=== PATIENT | female | born 1980 | race Two or more races ===

== ENCOUNTER 2019-06-09 10:42 | Emergency (ER) | payer MEDICARE, MEDICAID ==
[~2019-06-09] VITALS: Ht 160 cm; Wt 77.1 kg
[2019-06-09] MEDS ORDERED: SERT-160 (11:36)
[2019-06-09] MEDS ORDERED: SPIR50TA5 (11:36)
[2019-06-09] MEDS ORDERED: OXYC325T14 (11:36)
[2019-06-09] MEDS ORDERED: TADA20TA48 (11:36)
[2019-06-09] MEDS ORDERED: BUPR-60 (11:36)
[2019-06-09] MEDS ORDERED: TORS100T12 (11:36)
[2019-06-09] MEDS ORDERED: AMBR10TA4 (11:36)
[2019-06-09] MEDS ORDERED: ZOLP10TA6 (11:36)
[2019-06-09] MEDS ORDERED: RANI-229 (11:36)
[2019-06-09] MEDS ORDERED: ALPR-140 (11:36)
[2019-06-09] MEDS ORDERED: VENL150C58 (11:36)
[2019-06-09] MEDS ORDERED: HYDR4TAB2 (11:36)
[2019-06-09] MEDS ORDERED: PROM25TA5 (11:36)
[2019-06-09] MEDS ORDERED: SODIUM CHLORIDE 0.9% 1,000 ML IV ONE (11:47)
[2019-06-09 11:51] LABS: Basophils # (auto) 0 uL; Basophils % (auto) 0.2 % (0.0-2.0); Eosinophils # (auto) 0 uL; Hematocrit 32.4 % (36.0-46.0); Hemoglobin 9.9 g/dL (12.2-16.2); Lymphocytes # (auto) 0.5 uL; Lymphocytes % (auto) 6.7 % (10.0-50.0); Mean Corpuscular Hemoglobin 23.1 pg (28.0-32.0); Mean Corpuscular Hgb Conc. 30.5 g/dL (32.0-36.0); Mean Corpuscular Volume 75.9 fL (80.0-100.0); Monocytes # (auto) 0.7 uL; Monocytes % (auto) 8.8 % (0.0-12.0); Neutrophils # (auto) 6.7 uL; Neutrophils % (auto) 84.3 % (37.0-80.0); Nucleated Red Blood Cells % 0.1 %; Platelet Count (auto) 132 10^3/uL (140-450); Red Blood Cells 4.27 10^6/uL (4.0-5.20); Red Cell Distribution Width 21.1 % (11.8-14.3)
[2019-06-09 12:04] LABS: Alanine Aminotransferase 63 U/L (13-56); Albumin 3.5 g/dL (3.4-5.0); Anion Gap 10 (5-15); Aspartate Aminotransferase 131 U/L (15-37); BUN/Creatinine Ratio 13.9; Blood Alcohol < 3.0 mg/dL (0-5); Blood Urea Nitrogen 34 mg/dL (7-18); Calcium 8.4 mg/dL (8.5-10.1); Carbon Dioxide 22 mmol/L (21-32); Chloride 106 mmol/L (98-107); GFR African American 28 mL/min; GFR Non-African American 23 mL/min; Glucose 71 mg/dL (74-106); Magnesium 2.2 mg/dL (1.6-2.6); Potassium 4.1 mmol/L (3.5-5.1); Sodium 138 mmol/L (136-145)
[2019-06-09 12:09] LABS: Alkaline Phosphatase 122 U/L (45-117); Bilirubin, Total 1.3 mg/dL (0.2-1.0); Total Protein 7.1 g/dL (6.4-8.2)
[2019-06-09 13:14] LABS: INR 1.33 (0.9-1.15); Partial Thromboplastin Time 26.7 sec (23.64-32.05)
[2019-06-09] MEDS ORDERED: HYDROmorphone HCL 2 MG/ML VL IV ONE (15:45)
[2019-06-09 17:30] LABS: Urine Bacteria NONE SEEN /hpf (None Seen); Urine Blood Negative /uL (Negative); Urine Specific Gravity 1.009 (1.001-1.035); Urine WBC 2 /hpf (0 - 5)
[2019-06-09] MEDS ORDERED: LORazepam 2MG/ML-1ML VIAL IV ONE (17:30)
[2019-06-09 17:38] LABS: Alcohol, Urine < 3.0 mg/dL (0-5); Amphetamine Screen, Urine POSITIVE (NEGATIVE); Barbiturate Scree,Urine NEGATIVE (NEGATIVE); Benzodiazephine Screen, Urine NEGATIVE (NEGATIVE); Cannabinoid Screen, Urine NEGATIVE (NEGATIVE); Cocaine Screen, Urine NEGATIVE (NEGATIVE); Opiate Scree,Urine POSITIVE (NEGATIVE); Phencyclidine Screen, Urine NEGATIVE (NEGATIVE)
[2019-06-09 18:00] VITALS: BP 113/74
== END 2019-06-09 18:45 | disposition home or self-care (01) ==
LOC: EDBD 10:42 → ER 10:48
DX: R41.82 Altered mental status, unspecified (principal); E11.649 Type 2 diabetes mellitus with hypoglycemia without coma; G93.41 Metabolic encephalopathy; I27.20 Pulmonary hypertension, unspecified; F32.9 Major depressive disorder, single episode, unspecified; G89.4 Chronic pain syndrome; R94.5 Abnormal results of liver function studies; R79.1 Abnormal coagulation profile; F15.10 Other stimulant abuse, uncomplicated; D50.9 Iron deficiency anemia, unspecified; I50.9 Heart failure, unspecified; K21.9 Gastro-esophageal reflux disease without esophagitis; Z79.899 Other long term (current) drug therapy
CPT/HCPCS: 36415; 71045; 78582; 80053; 80307; 80320; 81001; 82962; 83735; 83880; 84443; 84484; 85025; 85379; 85610; 85730; 93005; 94761; 96361; 96374; 96375; 99284; A9540; A9558; J1170; J2060; J7030

== ENCOUNTER 2019-09-22 06:35 | Inpatient (IN) | payer MEDICARE, MEDICAID ==
[~2019-09-22] VITALS: Ht 157.5 cm; Wt 59.1 kg
[~2019-09-22 06:35] MED LIST: ALPR-140; AMBR10TA4; BUPR-60; HYDR4TAB2; OXYC325T14; PROM25TA5; RANI-229; SERT-160; SPIR50TA5; TADA20TA48; TORS100T12; VENL150C58; ZOLP10TA6
[2019-09-22] MEDS ORDERED: SODIUM CHLORIDE 0.9% 1,000 ML IV ONE (08:07)
[2019-09-22] MEDS ORDERED: HYDROmorphone HCL 2 MG/ML VL IV ONE (08:15)
[2019-09-22 08:33] LABS: Basophils # (auto) 0.1 uL; Basophils % (auto) 1.1 % (0.0-2.0); Eosinophils # (auto) 0 uL; Eosinophils % (auto) 0.4 % (0.0-7.0); Hematocrit 33.8 % (36.0-46.0); Hemoglobin 10.4 g/dL (12.2-16.2); Lymphocytes % (auto) 14.9 % (10.0-50.0); Mean Corpuscular Hemoglobin 21.4 pg (28.0-32.0); Mean Corpuscular Hgb Conc. 30.9 g/dL (32.0-36.0); Mean Corpuscular Volume 69.1 fL (80.0-100.0); Monocytes # (auto) 0.5 uL; Monocytes % (auto) 8.1 % (0.0-12.0); Neutrophils % (auto) 75.5 % (37.0-80.0); Platelet Count (auto) 181 10^3/uL (140-450); Red Blood Cells 4.88 10^6/uL (4.0-5.20); Red Cell Distribution Width 21.2 % (11.8-14.3); White Blood Cell 6.6 10^3/uL (4.4-10.8)
[2019-09-22 08:53] LABS: Alanine Aminotransferase 13 U/L (13-56); Albumin 3.7 g/dL (3.4-5.0); Anion Gap 11 (5-15); Aspartate Aminotransferase 15 U/L (15-37); BUN/Creatinine Ratio 12.2; Blood Urea Nitrogen 18 mg/dL (7-18); Calcium 8.5 mg/dL (8.5-10.1); Carbon Dioxide 23 mmol/L (21-32); Chloride 101 mmol/L (98-107); GFR African American 50 mL/min; GFR Non-African American 42 mL/min; Glucose 85 mg/dL (74-106); Lipase 136 U/L (73-393); Magnesium 2.1 mg/dL (1.6-2.6); Sodium 135 mmol/L (136-145)
[2019-09-22 08:59] LABS: Alkaline Phosphatase 111 U/L (45-117); Bilirubin, Total 0.6 mg/dL (0.2-1.0); Total Protein 7.6 g/dL (6.4-8.2)
[2019-09-22 09:07] LABS: Potassium 2.3 mmol/L (3.5-5.1)
[2019-09-22 09:09] LABS: INR 1.17 (0.9-1.15); Partial Thromboplastin Time 28.5 sec (23.64-32.05)
[2019-09-22] MEDS ORDERED: POTASSIUM EFFERVESENT TAB 25 MEQ PO ONE (09:15)
[2019-09-22] MEDS ORDERED: IOHEXOL 300 MG/ML 100ML BOTTLE IJ ONE (09:27)
[2019-09-22 09:54] LABS: Urine Bacteria NONE SEEN /hpf (None Seen); Urine Blood Negative /uL (Negative); Urine Specific Gravity 1.008 (1.001-1.035); Urine WBC 1 /hpf (0 - 5)
[2019-09-22] MEDS: PROMETHAZINE HCL 25 MG/ML 1ML IV PRN ×3 (10:02→20:43)
[2019-09-22] MEDS ORDERED: POTASSIUM CHLORIDE 20 MEQ, LIDOCAINE 1% (LOCAL ANESTH.) 2 ML in SODIUM CHL 0.9% 100 ML IV ONE ×2 (13:45→20:00)
[2019-09-22] MEDS ORDERED: NITROGLYCERIN 0.4 MG SL TAB SL PRN (13:45)
[2019-09-22] MEDS ORDERED: MORPHINE SULF INJ 2 MG/ML SYRINGE 1ML IV PRN (13:45)
[2019-09-22] MEDS: HYDROmorphone HCL 2 MG/ML VL IV PRN ×2 (15:09→18:31)
[2019-09-22] MEDS: PANTOPRAZOLE 40 MG TAB PO SCH ×2 (16:29→21:22)
--- NOTE | 2019-09-22 18:19 | NUR ---
CAME ON WC FROM ER, ALERT AND ORIENTED X4, NOT IN DISTRESS, LS DIMINISHED IN BILATERAL LUNG LOBES, RR=20 UDP=260 IN RA, S TACH ON TELE MONITOR R=104, DENIED CHEST PAIN AND SOB, RT. CHEST FLOLAN SITE COVERED WITH DRY AND INTACT DRESSING, ABDOMEN SOFT WITH ACTIVE BS IN 4 QUADRANTS, LAST BM=THIS MORNING REPORTED, C/O ABDOMINAL PAIN L=8/10 AT THIS MOMENT, SKIN INTACT WARM TO TOUCH, RADIAL AND PEDAL PULSES PALPABLE, CAP REFILL <3 SECONDS, VS T=98.4 RR=20 SAT=93% P=104 RG=792/81, SITTING ON BED, BED ON LOW POSITION, RAILS UP X2, CALL LIGHT ON REACH, PENDING EGD IN AM ORDERED, WILL CONTINUE MONITORING.
[2019-09-22] MEDS: ONDANSETRON HCL 4 MG/2 ML VIAL IV PRN (18:31)
[2019-09-22 18:37] VITALS: BP 112/81
[2019-09-22 19:21] LABS: BUN/Creatinine Ratio 12.3; Calcium 8.7 mg/dL (8.5-10.1)
[2019-09-22 19:30] LABS: Potassium 2.5 mmol/L (3.5-5.1)
--- NOTE | 2019-09-22 19:40 | NUR ---
PENDING MRSA NARES SAMPLE AND LT. ANKLE WOUND PICTURE, PHARMACY WAS CALLED FOR PENDING POTASSIUM IV BP FOLLOW UP, PHARMACY WILL SEND THE MEDICATION REPORTED, POTASSIUM L= 2.5 REPORTED BY LAB, HOSPITALIST MONO WAS CALLED AND NOTIFIED, PENDING NEW ORDERS REPORTED, REPORT WAS GIVEN TO THE CHEMICAL ETCHING PROCESSOR RN.
[2019-09-22] MEDS ORDERED: POTASSIUM CHLORIDE 60 MEQ, LIDOCAINE 1% (LOCAL ANESTH.) 6 ML in SODIUM CHL 0.9% 500 ML IV ONE (19:45)
--- NOTE | 2019-09-22 20:53 | NUR ---
MRSA Nares sent to lab via bullet system.
--- NOTE | 2019-09-22 21:30 | NUR ---
Wound admission picture taken of left ankle.
[2019-09-22 22:29] VITALS: BP 123/73
[2019-09-23] MEDS: HYDROmorphone HCL 2 MG/ML VL IV PRN ×5 (03:02→21:13)
[2019-09-23] MEDS: PROMETHAZINE HCL 25 MG/ML 1ML IV PRN ×4 (03:03→18:13)
--- NOTE | 2019-09-23 04:54 | NUR ---
The aide was taking the patient's VS and found the patient's oxygen level to be 74% on RA. This RN came to assess the patient and placed supplemental oxygen on at 3 L/min via nasal cannula and the oxygen level came up to 88%. The oxygen was then increased to 5 L/min and the oxygen saturation came up to 93%. The patient felt warm to the touch, capillary refill was less 3 seconds, coloring had pink and red undertones to the skin. This RN asked the patient if she uses oxygen at home and she stated she uses oxygen at home at 2.5 L/min via nasal cannula. She stated she did not share that information in the ED or as part of her medical history during the admission because she felt fine and came here because of a headache. She states at home her oxygen level is normally around 85% and her oxygen levels drop when she sleeps. Bradley yates hospitalist.
[2019-09-23 05:35] VITALS: BP 123/60
[2019-09-23 06:34] LABS: Eosinophils # (auto) 0 uL; Hematocrit 33.5 % (36.0-46.0); Lymphocytes # (auto) 1.1 uL; Mean Corpuscular Volume 70.4 fL (80.0-100.0); Monocytes # (auto) 0.5 uL; Monocytes % (auto) 8.6 % (0.0-12.0)
[2019-09-23 06:37] LABS: Basophils # (auto) 0.1 uL; Basophils % (auto) 1.4 % (0.0-2.0); Eosinophils % (auto) 0.6 % (0.0-7.0); Hemoglobin 10.1 g/dL (12.2-16.2); Lymphocytes % (auto) 19.1 % (10.0-50.0); Mean Corpuscular Hemoglobin 21.3 pg (28.0-32.0); Mean Corpuscular Hgb Conc. 30.2 g/dL (32.0-36.0); Neutrophils # (auto) 3.9 uL; Neutrophils % (auto) 70.3 % (37.0-80.0); Nucleated Red Blood Cells % 0.2 %; Platelet Count (auto) 182 10^3/uL (140-450); Red Blood Cells 4.76 10^6/uL (4.0-5.20); White Blood Cell 5.6 10^3/uL (4.4-10.8)
[2019-09-23 06:45] LABS: Albumin 3.6 g/dL (3.4-5.0); Calcium 8.5 mg/dL (8.5-10.1); Potassium 3.3 mmol/L (3.5-5.1)
[2019-09-23 06:49] LABS: BUN/Creatinine Ratio 11.4; Bilirubin, Total 0.6 mg/dL (0.2-1.0); Total Protein 7.3 g/dL (6.4-8.2)
[2019-09-23 06:56] LABS: Red Cell Distribution Width 21.3 % (11.8-14.3)
--- NOTE | 2019-09-23 07:35 | NUR ---
Opening Shift Note Assumed care of patient, awake and alert. No S/S of distress/SOB or pain. Instructed on POC and to call for assist PRN, will continue to monitor for changes Q1hr and PRN.
[2019-09-23 08:00] VITALS: BP 137/91
[2019-09-23] MEDS: PANTOPRAZOLE 40 MG TAB PO SCH ×2 (09:14→21:14)
[2019-09-23] MEDS: SUMAtriptan SUCCINATE 25 MG TAB PO PRN (09:43)
--- NOTE | 2019-09-23 12:48 | NUR ---
ROUNDING MD Mireya MARIN AT BEDSIDE. ALL QUESTIONS AND CONCERNS ADDRESSED AT THIS TIME.
[2019-09-23 13:00] VITALS: BP 132/87
[2019-09-23] MEDS: SUCRALFATE 1 GM/10 ML ORAL SUSP PO SCH ×3 (13:46→21:14)
[2019-09-23 17:00] VITALS: BP 137/95
[2019-09-23] MEDS: ALPRAZolam 0.5 MG TAB PO PRN (17:18)
--- NOTE | 2019-09-23 20:00 | NUR ---
Opening Shift Note Assumed care of patient, awake and alert. No S/S of distress/SOB or pain. Instructed on POC and to call for assist PRN, will continue to monitor for changes Q1hr and PRN.Advised no food or drink after midnight.
[2019-09-23] MEDS: POTASSIUM CHL 20 Meq TABLET PO SCH (21:14)
[2019-09-23 22:00] VITALS: BP 136/80
[2019-09-24] MEDS: PROMETHAZINE HCL 25 MG/ML 1ML IV PRN ×2 (00:34→21:56)
[2019-09-24] MEDS: HYDROmorphone HCL 2 MG/ML VL IV PRN ×7 (00:35→23:16)
[2019-09-24] MEDS: ALPRAZolam 0.5 MG TAB PO PRN ×2 (02:49→16:05)
[2019-09-24] MEDS: ONDANSETRON HCL 4 MG/2 ML VIAL IV PRN ×3 (02:56→19:55)
[2019-09-24 04:43] VITALS: BP 133/84
[2019-09-24] MEDS: SUCRALFATE 1 GM/10 ML ORAL SUSP PO SCH ×4 (06:12→21:55)
[2019-09-24 07:06] LABS: Potassium 4.1 mmol/L (3.5-5.1)
--- NOTE | 2019-09-24 07:08 | NUR ---
Report given to Rodolfo WHITT maintained for EGD today.
[2019-09-24 07:12] LABS: Albumin 3.4 g/dL (3.4-5.0); BUN/Creatinine Ratio 10.9; Bilirubin, Total 0.5 mg/dL (0.2-1.0); Calcium 8.1 mg/dL (8.5-10.1); Total Protein 6.4 g/dL (6.4-8.2)
[2019-09-24 07:13] LABS: Basophils # (auto) 0.1 uL; Eosinophils # (auto) 0 uL; Monocytes # (auto) 0.5 uL; Nucleated Red Blood Cells % 0.1 %
[2019-09-24 07:15] LABS: Basophils % (auto) 0.9 % (0.0-2.0); Eosinophils % (auto) 0.8 % (0.0-7.0); Hematocrit 33.1 % (36.0-46.0); Hemoglobin 9.8 g/dL (12.2-16.2); Lymphocytes # (auto) 0.9 uL; Lymphocytes % (auto) 15.8 % (10.0-50.0); Mean Corpuscular Hgb Conc. 29.7 g/dL (32.0-36.0); Mean Corpuscular Volume 70.8 fL (80.0-100.0); Monocytes % (auto) 9.1 % (0.0-12.0); Neutrophils # (auto) 4.2 uL; Neutrophils % (auto) 73.4 % (37.0-80.0); Platelet Count (auto) 191 10^3/uL (140-450); Red Blood Cells 4.67 10^6/uL (4.0-5.20); White Blood Cell 5.8 10^3/uL (4.4-10.8)
[2019-09-24 07:16] LABS: Red Cell Distribution Width 21.3 % (11.8-14.3)
--- NOTE | 2019-09-24 08:44 | NUR ---
TAKEN TO PRE OP VIA BED. NO SIGNS OF DISTRESS. IV TENDER. ATTEMPTED IV TWICE WITH NO SUCCESS. ANT Braun STARTED 20 G RIGHT HAND ON FIRST ATTEMPT.
[2019-09-24 09:00] VITALS: BP 141/92
[2019-09-24] MEDS ORDERED: MIDAZOLAM HCL 1MG/1ML-2 ML VIAL ONE (09:13)
[2019-09-24] MEDS ORDERED: fentaNYL CITRATE 100 MCG/2 ML VL ONE (09:13)
[2019-09-24] MEDS ORDERED: SODIUM CHLORIDE LOCK 10 ML ONE (09:13)
[2019-09-24] MEDS ORDERED: ONDANSETRON HCL 4 MG/2 ML VIAL ONE (09:13)
[2019-09-24] MEDS ORDERED: PROPOFOL 10 MG/ML 20 ML IV ONE (09:13)
[2019-09-24] MEDS ORDERED: fentaNYL CITRATE 100 MCG/2 ML VL IV PRN (09:30)
[2019-09-24] MEDS ORDERED: HYDROmorphone HCL 2 MG/ML VL IV PRN (09:30)
[2019-09-24] MEDS ORDERED: METOCLOPRAMIDE HCL 5MG/ml INJ 2ml VIAL IV PRN (09:30)
[2019-09-24] MEDS ORDERED: MORPHINE SULFATE 4 MG/ML SYR/VIAL IV PRN (09:30)
[2019-09-24] MEDS: PANTOPRAZOLE 40 MG TAB PO SCH ×2 (09:35→21:55)
[2019-09-24] MEDS: POTASSIUM CHL 20 Meq TABLET PO SCH ×2 (09:35→21:55)
[2019-09-24] MEDS: SUMAtriptan SUCCINATE 25 MG TAB PO PRN ×2 (11:51→19:56)
[2019-09-24 12:30] VITALS: BP 133/87
[2019-09-24 16:56] VITALS: BP 122/81
--- NOTE | 2019-09-24 19:30 | NUR ---
Opening Shift Note Assumed care of patient, awake and alertx4. Family at bedside. IV to right hand flushed with 10 mls NS. Site benign. No S/S of SOB. Complains of headache and abdominal pain along with nausea. Will medicate per orders. Skin clear. Instructed on POC and to call for assist PRN, will continue to monitor for changes Q1hr and PRN.
[2019-09-24 21:47] VITALS: BP 125/85
[2019-09-25] MEDS: ALPRAZolam 0.5 MG TAB PO PRN
[2019-09-25] MEDS: HYDROmorphone HCL 2 MG/ML VL IV PRN ×7 (02:00→23:15)
[2019-09-25] MEDS: PROMETHAZINE HCL 25 MG/ML 1ML IV PRN ×2 (02:00→07:20)
[2019-09-25] MEDS: ONDANSETRON HCL 4 MG/2 ML VIAL IV PRN (05:00)
[2019-09-25 05:04] VITALS: BP 125/85
[2019-09-25 05:58] LABS: Basophils # (auto) 0 uL; Lymphocytes # (auto) 0.9 uL; Monocytes # (auto) 0.5 uL; Nucleated Red Blood Cells % 0.1 %
[2019-09-25 06:00] LABS: Basophils % (auto) 0.3 % (0.0-2.0); Eosinophils # (auto) 0.1 uL; Hematocrit 36.7 % (36.0-46.0); Hemoglobin 10.9 g/dL (12.2-16.2); Lymphocytes % (auto) 13.6 % (10.0-50.0); Mean Corpuscular Hemoglobin 21.4 pg (28.0-32.0); Mean Corpuscular Hgb Conc. 29.8 g/dL (32.0-36.0); Mean Corpuscular Volume 71.8 fL (80.0-100.0); Monocytes % (auto) 7.6 % (0.0-12.0); Neutrophils # (auto) 4.8 uL; Neutrophils % (auto) 77.5 % (37.0-80.0); Platelet Count (auto) 204 10^3/uL (140-450); Red Blood Cells 5.11 10^6/uL (4.0-5.20); White Blood Cell 6.2 10^3/uL (4.4-10.8)
--- NOTE | 2019-09-25 06:00 | NUR ---
Patient continued to have nausea and vomiting throughout night. Ice chips given, alternated her zofran and phenergan for the nausea. Complained of severe headache most of night along with her abdominal pain. Very restless and upset crying a few times. Pain meds given per orders. Gave imitrex x1 and patient did not want it again for the headache. Called hospitalist this am and received order for tums due to complaints of "heartburn" stating " I need something for the acid". Complains of leg cramps/spasms as well. Encouraged fluids. Will endorse.
[2019-09-25 06:11] LABS: Red Cell Distribution Width 21.2 % (11.8-14.3)
[2019-09-25 06:18] LABS: Albumin 3.7 g/dL (3.4-5.0); Calcium 8.8 mg/dL (8.5-10.1); Potassium 4.4 mmol/L (3.5-5.1)
[2019-09-25 06:22] LABS: BUN/Creatinine Ratio 10.3; Bilirubin, Total 0.6 mg/dL (0.2-1.0); Total Protein 7.3 g/dL (6.4-8.2)
[2019-09-25] MEDS: SUCRALFATE 1 GM/10 ML ORAL SUSP PO SCH ×4 (06:44→22:20)
[2019-09-25 09:00] VITALS: BP 123/84
[2019-09-25] MEDS: CALCIUM CARB 500 MG CHEW TAB PO SCH ×3 (09:16→18:19)
--- NOTE | 2019-09-25 11:49 | NUR ---
NUTRITION ASSESSMENT NOTES Please refer to link notes of nutrition screen form filed under the intervention section of the plan of care for further details. Est. Needs: 1450 kcal to 1750 kcal (25-30 kcal/kgBW), 47 gms to 59 gms pro (0.8-1.0 gms/kgBW). Will continue to monitor pertinent labs and reassess nutrient need prn Thank you. Addendum: 09/25/19 at [address] Amended: Links added.
[2019-09-25] MEDS: POTASSIUM CHL 20 Meq TABLET PO SCH ×2 (11:54→22:20)
[2019-09-25] MEDS: PANTOPRAZOLE 40 MG TAB PO SCH ×2 (11:54→22:20)
[2019-09-25] MEDS: OXYCODONE W/ ACETAMINOPHEN 5/325MG TABLET PO PRN ×2 (11:55→18:26)
[2019-09-25 13:00] VITALS: BP 125/75
[2019-09-25 17:00] VITALS: BP 114/72
[2019-09-25] MEDS: PROCHLORPERAZINE EDISYLATE 5 MG/ML 2ML VIAL IV PRN (20:00)
[2019-09-25 21:56] VITALS: BP 137/76
[2019-09-25] MEDS: LORazepam 2MG/ML-1ML VIAL IV PRN (22:22)
--- NOTE | 2019-09-25 23:00 | NUR ---
Started new IV to Left AC 22 G. Patient tolerated well. Saline locked at this time. Discontinued IV to right hand due to redness and patient complaining of it bothering her.Medicine given for nausea and pain meds per patient request. Patient is doing much better than last night. Not vomiting regularly like last night. Continuing to monitor
[2019-09-26] MEDS: HYDROmorphone HCL 2 MG/ML VL IV PRN ×5 (02:20→20:41)
[2019-09-26 05:19] VITALS: BP 124/82
[2019-09-26] MEDS: SUCRALFATE 1 GM/10 ML ORAL SUSP PO SCH ×4 (07:00→23:03)
--- NOTE | 2019-09-26 07:30 | NUR ---
Opening Shift Note Assumed care of patient, awake and alert. No S/S of distress/SOB. Pt rated pain at 10/10, pt educated that pain medications are not due at this time. Pt verbalized understanding. Bed in lowest and locked position with side rails up x2 and call light within reach. Instructed on POC and to call for assist PRN, will continue to monitor for changes Q1hr and PRN.
[2019-09-26 07:41] LABS: Basophils # (auto) 0.1 uL; Eosinophils # (auto) 0 uL; Eosinophils % (auto) 0.8 % (0.0-7.0); Hemoglobin 10.2 g/dL (12.2-16.2); Lymphocytes # (auto) 1.3 uL; Neutrophils # (auto) 4.3 uL; Nucleated Red Blood Cells % 0.1 %
[2019-09-26 07:43] LABS: Basophils % (auto) 1.1 % (0.0-2.0); Hematocrit 34.1 % (36.0-46.0); Lymphocytes % (auto) 21.6 % (10.0-50.0); Mean Corpuscular Hemoglobin 21.6 pg (28.0-32.0); Mean Corpuscular Hgb Conc. 29.9 g/dL (32.0-36.0); Mean Corpuscular Volume 72.1 fL (80.0-100.0); Monocytes # (auto) 0.4 uL; Monocytes % (auto) 7.2 % (0.0-12.0); Neutrophils % (auto) 69.3 % (37.0-80.0); Platelet Count (auto) 189 10^3/uL (140-450); Red Blood Cells 4.72 10^6/uL (4.0-5.20); White Blood Cell 6.2 10^3/uL (4.4-10.8)
[2019-09-26 07:44] LABS: Red Cell Distribution Width 21.6 % (11.8-14.3)
[2019-09-26] MEDS: CALCIUM CARB 500 MG CHEW TAB PO SCH ×3 (08:00→17:09)
[2019-09-26 08:20] VITALS: BP 120/89
[2019-09-26 08:29] LABS: Albumin 3.3 g/dL (3.4-5.0); Calcium 8.3 mg/dL (8.5-10.1)
[2019-09-26 08:34] LABS: Bilirubin, Total 0.7 mg/dL (0.2-1.0); Total Protein 6.6 g/dL (6.4-8.2)
[2019-09-26 09:00] VITALS: BP 120/89
--- NOTE | 2019-09-26 09:09 | NUR ---
CALL FROM LAB RECEIVED CALL FROM [facility] WITH LAB. ACCORDING TO THE FERN PICKER, THE PTS POTASSIUM LEVEL IS CRITICAL AT 5.9. MD TO BE NOTIFIED.
[2019-09-26 09:10] LABS: Potassium 5.9 mmol/L (3.5-5.1)
--- NOTE | 2019-09-26 09:12 | NUR ---
NOTIFIED DR. MARIN OF CRITICAL POTASSIUM DR. MARIN NOTIFIED OF THE CRITICAL POTASSIUM OF 5.9. NEW ORDERS RECEIVED, READ BACK AND VERIFIED TO REPEAT BMP.
[2019-09-26] MEDS: POTASSIUM CHL 20 Meq TABLET PO SCH ×2 (10:00→23:03)
[2019-09-26] MEDS: PROCHLORPERAZINE EDISYLATE 5 MG/ML 2ML VIAL IV PRN ×2 (10:53→20:42)
[2019-09-26] MEDS: PANTOPRAZOLE 40 MG TAB PO SCH ×2 (10:56→23:04)
[2019-09-26 10:59] LABS: BUN/Creatinine Ratio 9.3; Calcium 8.5 mg/dL (8.5-10.1); Potassium 5.1 mmol/L (3.5-5.1)
--- NOTE | 2019-09-26 11:00 | NUR ---
DR. MARIN NOTIFIED OF NEW POTASSIUM LAB DRAW. AWARE THAT PTS POTASSIUM IS 5.1 WITH THE RE-DRAW. AWARE. NO NEW ORDERS RECEIVED AT THIS TIME.
[2019-09-26 13:00] VITALS: BP 144/76
[2019-09-26] MEDS: OXYCODONE W/ ACETAMINOPHEN 5/325MG TABLET PO PRN ×2 (13:33→23:00)
[2019-09-26] MEDS: LORazepam 2MG/ML-1ML VIAL IV PRN ×2 (14:57→23:00)
[2019-09-26 17:00] VITALS: BP 140/77
[2019-09-26 21:48] VITALS: BP 133/99
--- NOTE | 2019-09-26 22:21 | NUR ---
New IV started to Right FA 20 Gauge. Discontinued IV to left AC due to leaking. Tolerated well. Will continue to monitor.
[2019-09-27] MEDS: HYDROmorphone HCL 2 MG/ML VL IV PRN ×2 (03:17→11:09)
[2019-09-27] MEDS: PROCHLORPERAZINE EDISYLATE 5 MG/ML 2ML VIAL IV PRN (03:17)
[2019-09-27 04:53] VITALS: BP 120/70
[2019-09-27 06:50] LABS: Albumin 3.4 g/dL (3.4-5.0); Calcium 8.8 mg/dL (8.5-10.1); Potassium 4.7 mmol/L (3.5-5.1)
[2019-09-27 06:54] LABS: BUN/Creatinine Ratio 9.3; Bilirubin, Total 0.8 mg/dL (0.2-1.0); Total Protein 6.6 g/dL (6.4-8.2)
[2019-09-27] MEDS: SUCRALFATE 1 GM/10 ML ORAL SUSP PO SCH ×2 (06:59→11:09)
[2019-09-27 07:02] LABS: % Iron Saturation 13.9 % (15-50)
--- NOTE | 2019-09-27 07:30 | NUR ---
Opening Shift Note Assumed care of patient, awake and alert. No S/S of distress/SOB or pain. Bed in lowest and locked position with side rails up x2 and call light within reach. Instructed on POC and to call for assist PRN, will continue to monitor for changes Q1hr and PRN.
[2019-09-27 08:00] VITALS: BP 121/78
[2019-09-27] MEDS: CALCIUM CARB 500 MG CHEW TAB PO SCH ×2 (08:00→12:00)
[2019-09-27 08:59] VITALS: BP 121/78
[2019-09-27] MEDS: POTASSIUM CHL 20 Meq TABLET PO SCH (10:00)
[2019-09-27 10:11] LABS: Ferritin 14.7 ng/mL (10-322)
--- NOTE | 2019-09-27 10:35 | NUR ---
SPOKE TO DR. MARIN ACCORDING TO DR. MARIN, HE DISCUSSED THE POC WITH DR. BEDOLLA AND GRAEME SIGNED OFF THE CASE. PER DR. MARIN, CANCEL IMAGING AND PATIENT CAN BE DISCHARGED.
--- NOTE | 2019-09-27 10:55 | NUR ---
SPOKE TO DR. MARIN. NOTIFIED DR. MARIN THAT THE PATIENT IS IN PAIN AND REQUESTING DILAUDID. MD AWARE. ACCORDING TO MD, THE PATIENT IS TO BE GIVEN DILAUDID REGARDLESS OF DISCHARGE STATUS.
[2019-09-27] MEDS: PANTOPRAZOLE 40 MG TAB PO SCH (11:09)
[2019-09-27 11:13] LABS: Basophils # (auto) 0.1 uL; Eosinophils # (auto) 0 uL; Eosinophils % (auto) 0.3 % (0.0-7.0); Hematocrit 40.4 % (36.0-46.0); Hemoglobin 12.2 g/dL (12.2-16.2); Lymphocytes # (auto) 1.2 uL; Mean Corpuscular Hemoglobin 21.4 pg (28.0-32.0); Monocytes # (auto) 0.5 uL; Nucleated Red Blood Cells % 0.1 %
[2019-09-27 11:15] LABS: Lymphocytes % (auto) 16.7 % (10.0-50.0); Mean Corpuscular Hgb Conc. 30.2 g/dL (32.0-36.0); Mean Corpuscular Volume 70.7 fL (80.0-100.0); Monocytes % (auto) 7.3 % (0.0-12.0); Neutrophils # (auto) 5.4 uL; Neutrophils % (auto) 74.7 % (37.0-80.0); Platelet Count (auto) 229 10^3/uL (140-450); Red Blood Cells 5.71 10^6/uL (4.0-5.20); White Blood Cell 7.2 10^3/uL (4.4-10.8)
--- NOTE | 2019-09-27 11:17 | NUR ---
SPOKE TO DR. MARIN. DR. MARIN NOTIFIED THAT THE PATIENT HAS A CENTRAL LINE FOR HER PULMONARY HTN AND THAT THE PATIENT HAS HAD THIS LINE FOR 10 YEARS. MD AWARE AND ACCORDING TO DR. MARIN THE PATIENT IS TO DISCHARGE WITH THE CENTRAL LINE.
[2019-09-27 11:21] LABS: Red Cell Distribution Width 21.9 % (11.8-14.3)
[2019-09-27 12:48] VITALS: BP 121/78
[2019-09-27 13:00] VITALS: BP 121/75
--- NOTE | 2019-09-27 13:37 | NUR ---
SPOKE TO DR. OLSON ACCORDING TO DR. OLSON THE PATIENT IS CLEAR FOR DISCHARGE AFTER THE PATIENT RECEIVED A ONE TIME DOSE OF DILAUDID. MD NOTIFIED THAT THE PATIENT HAS RECEIVED DILAUDID RECENTLY AND PER MD ORDERS THE PATIENT IS TO HAVE A SECOND DOSE.
[2019-09-27] MEDS ORDERED: HYDROmorphone HCL 2 MG/ML VL IV ONE (13:45)
--- NOTE | 2019-09-27 15:24 | NUR ---
Discharge instructions given as ordered. Encourage to follow up with PMD as instructed. All questions and concerns addressed. Patient verbalized understanding. Medication reconciliation form completed and copy given to patient. No Home medications held in Pharmacy. Pt refused needed vaccines. IV removed with catheter intact, pressure dressing applied. Telemetry unit returned to ICU. Wound pictures taken.
--- NOTE | 2019-09-27 15:25 | NUR ---
Patient refused wheel chair and assistance. Patient walked off unit with all personal belongings accompanied by family member. No distress noted at time of departure.
== END 2019-09-27 15:25 | disposition home or self-care (01) | DRG 391 ==
LOC: ER 06:35 → TELE 06:36 → TELE-CENTR 17:24
PROVIDERS: ADMIT Nurse Practitioner Acute Care; ATTEND Family Medicine
PROC: 0DB68ZX Excision of Stomach, Via Natural or Artificial Opening Endoscopic, Diagnostic (ICD-10-PCS; principal; 2019-09-24 09:25)
DX: K29.00 Acute gastritis without bleeding (principal); I50.23 Acute on chronic systolic (congestive) heart failure; Q44.6 Cystic disease of liver; I31.3 Pericardial effusion (noninflammatory); R18.8 Other ascites; I13.0 Hypertensive heart and chronic kidney disease with heart failure and stage 1 through stage 4 chronic kidney disease, or unspecified chronic kidney disease; E03.9 Hypothyroidism, unspecified; E87.6 Hypokalemia; I27.20 Pulmonary hypertension, unspecified; D50.9 Iron deficiency anemia, unspecified; N18.3 Chronic kidney disease, stage 3 (moderate); G43.109 Migraine with aura, not intractable, without status migrainosus; I27.21 Secondary pulmonary arterial hypertension; F32.9 Major depressive disorder, single episode, unspecified; F41.9 Anxiety disorder, unspecified; K21.9 Gastro-esophageal reflux disease without esophagitis; Z90.49 Acquired absence of other specified parts of digestive tract; Z79.899 Other long term (current) drug therapy; Z88.1 Allergy status to other antibiotic agents; Z88.8 Allergy status to other drugs, medicaments and biological substances
CPT/HCPCS: 36415; 43239; 71046; 74177; 80048; 80053; 81001; 81241; 82607; 82728; 83540; 83550; 83615; 83690; 83735; 83880; 84443; 84484; 85025; 85045; 85302; 85306; 85379; 85610; 85613; 85670; 85705; 85730; 85732; 86147; 86850; 86880; 86900; 86901; 87081; 93005; 93306; 96361; 96374; G0378; J2001; J2250; J2405; J2704; J7042

== ENCOUNTER 2020-03-25 10:22 | Emergency (ER) | payer MEDICARE, MEDICAID ==
[~2020-03-25] VITALS: Ht 162.6 cm; Wt 65.8 kg
[~2020-03-25 10:22] MED LIST changes: -ALPR-140; +ALPR0.5T8; -RANI-229; +RANI300T
[2020-03-25 10:52] VITALS: BP 114/71
[2020-03-25] MEDS ORDERED: MORPHINE SULFATE 10 MG/ML INJ 1ML SDV IM ONE (11:15)
[2020-03-25] MEDS ORDERED: PROMETHAZINE HCL 25 MG/ML 1ML IM ONE (11:15)
== END 2020-03-25 11:40 | disposition home or self-care (01) ==
LOC: ER 10:22
DX: G89.29 Other chronic pain (principal); M54.5 Low back pain; G43.909 Migraine, unspecified, not intractable, without status migrainosus; K21.9 Gastro-esophageal reflux disease without esophagitis; Z88.1 Allergy status to other antibiotic agents; I50.9 Heart failure, unspecified; Z90.49 Acquired absence of other specified parts of digestive tract
CPT/HCPCS: 96372; 99284; J2270; J2550

== ENCOUNTER 2020-05-20 17:00 | Inpatient (IN) | payer MEDICARE, MEDICAID ==
[~2020-05-20] VITALS: Ht 172.7 cm; Wt 77.1 kg
[2020-05-20 17:15] VITALS: BP 96/58
[2020-05-20] MEDS ORDERED: MIDAZOLAM HCL 5 MG/ML-1ML VIAL IV ONE ×2 (17:15→17:45)
--- NOTE | 2020-05-20 17:15 | NUR ---
RT NOTE PT WAS INTUBATED FOR RESP FAILURE. PT INTUBATED BY DR PEARCE ON FIRST ATTEMPT WITH INTUBATION ASSIST FROM OPERATOR GROUND BASED AIR DEFENCE TRACY Cam AND OPERATOR GROUND BASED AIR DEFENCE MOIRA Cordoba PT INTUBATED WITH A SIZE 8.0 ETT SECURED 23CM AT THE LIP VIA [place]. PT PLACED ON VENT WITH THE ABOVE SETTINGS. PT WAS FIGHTING THE VENT AND GAGGING ON THE TUBE. DR PEARCE ORDERED LIDOCAINE AND INJECTED IT DOWN THE ETT WHILE OPERATOR GROUND BASED AIR DEFENCE MOIRA Cordoba BAGGED THE MEDICATION IN. PT WAS ABLE TO CALM AND NOT GAG ON THE TUBE AFTER MEDICATION WAS GIVEN. SPUTUM WAS COLLECTED AND SENT TO LAB. ABG WAS DRAWN AND RESULTS SHOWN TO ON COMING DR DAVIS.
[2020-05-20] MEDS ORDERED: MIDAZOLAM HCL 5 MG/ML-1ML VIAL ONE (17:16)
[2020-05-20] MEDS ORDERED: MIDAZOLAM DRIP 50 mg/50mL 50 ML IV ONE (17:16)
[2020-05-20] MEDS: MIDAZOLAM DRIP 50 mg/50mL 50 ML IV SCH (17:17)
[2020-05-20] MEDS ORDERED: MORPHINE SULFATE 4 MG/ML SYR/VIAL ONE (17:22)
[2020-05-20] MEDS ORDERED: LIDOCAINE HCL 2 % INJ 2ML MPF NEB ONE (17:30)
[2020-05-20] MEDS ORDERED: LIDOCAINE 2%HCL (LOCAL ANESTH.) INJ 20ML MDV ONE (17:35)
[2020-05-20] MEDS ORDERED: MORPHINE SULFATE 4 MG/ML SYR/VIAL IV ONE ×2 (17:45)
[2020-05-20] MEDS ORDERED: LIDOCAINE 2% (LOCAL ANESTH.) PF 5ml SDV IJ ONE (17:45)
[2020-05-20] MEDS ORDERED: ACETAMINOPHEN 650 MG RECT SUPP PR ONE ×2 (17:49→18:00)
[2020-05-20 18:05] LABS: Urine Bacteria FEW /hpf (None Seen); Urine Blood Negative /uL (Negative); Urine Specific Gravity 1.011 (1.001-1.035); Urine WBC 3 /hpf (0 - 5)
[2020-05-20 18:07] LABS: Basophils # (auto) 0.1 10 ^3/uL (0-0.2); Eosinophils # (auto) 0 10 ^3/uL (0-0.8); Hemoglobin 8.8 g/dL (12.2-16.2); Lymphocytes # (auto) 1.1 10 ^3/uL (0.4-5.4); Mean Corpuscular Hemoglobin 19.8 pg (28.0-32.0); Monocytes % (auto) 7.6 % (0.0-12.0)
[2020-05-20 18:09] LABS: Basophils % (auto) 0.3 % (0.0-2.0); Hematocrit 31.8 % (36.0-46.0); Lymphocytes % (auto) 5.7 % (10.0-50.0); Mean Corpuscular Hgb Conc. 27.8 g/dL (32.0-36.0); Mean Corpuscular Volume 71.2 fL (80.0-100.0); Monocytes # (auto) 1.5 10 ^3/uL (0-1.3); Neutrophils # (auto) 17.5 10 ^3/uL (1.6-8.6); Neutrophils % (auto) 86.4 % (37.0-80.0); Nucleated Red Blood Cells % 0.8 %; Platelet Count (auto) 195 10^3/uL (140-450); Red Blood Cells 4.47 10^6/uL (4.0-5.20); White Blood Cell 20.2 10^3/uL (4.4-10.8)
[2020-05-20 18:15] LABS: INR 1.58 (0.9-1.15); Partial Thromboplastin Time 29.8 sec (23.0-31.2)
[2020-05-20 18:21] LABS: Albumin 2.7 g/dL (3.4-5.0); Anion Gap 11 (5-15); Blood Urea Nitrogen 51 mg/dL (7-18); Calcium 7.7 mg/dL (8.5-10.1); Carbon Dioxide 23 mmol/L (21-32); Chloride 100 mmol/L (98-107); Magnesium 2.4 mg/dL (1.6-2.6); Potassium 4.9 mmol/L (3.5-5.1); Sodium 134 mmol/L (136-145)
[2020-05-20 18:24] LABS: Lactic Acid w/Reflex 5.4 mmol/L (0.4-2.0)
[2020-05-20 18:27] LABS: Alanine Aminotransferase 198 U/L (13-56); Alkaline Phosphatase 119 U/L (45-117); Aspartate Aminotransferase 493 U/L (15-37); BUN/Creatinine Ratio 16.8; Bilirubin, Total 0.9 mg/dL (0.2-1.0); GFR African American 22 mL/min; GFR Non-African American 18 mL/min
[2020-05-20] MEDS ORDERED: cefTRIAXone 1GM/50ML D5W 50 ML IV ONE (18:30)
[2020-05-20 18:38] LABS: Glucose 41 mg/dL (74-106)
[2020-05-20] MEDS ORDERED: DEXTROSE 50% SYRINGE 50 ML IV ONE (18:39)
[2020-05-20] MEDS: NOREPINEPHRINE 8 MG/250ML KIT 250 ML IV SCH (18:45)
[2020-05-20] MEDS ORDERED: DEXTROSE (50%) 50ML SYRG IV PRN ×2 (19:00→21:00)
[2020-05-20] MEDS ORDERED: DEXTROSE (50%) 50ML SYRG IV ONE (19:00)
[2020-05-20] MEDS ORDERED: DEXTROSE 10% 1,000 ML IV ONE (19:00)
[2020-05-20] MEDS ORDERED: ACCU-CHEK COMFORT CURVE STRIP VI SCH (19:00)
[2020-05-20] MEDS ORDERED: SODIUM CHLORIDE 0.9% 1,000 ML IV SCH (20:46)
[2020-05-20 20:48] VITALS: BP 90/55
[2020-05-20] MEDS ORDERED: ACETAMINOPHEN 325 MG TAB PO PRN (21:00)
[2020-05-20] MEDS ORDERED: DOCUSATE SOD 100 MG CAP PO PRN (21:00)
[2020-05-20] MEDS ORDERED: ACETAMINOPHEN 500 MG TAB PO PRN (21:00)
[2020-05-20] MEDS ORDERED: HYDROcodone-ACET 5/325MG TAB PO PRN (21:00)
[2020-05-20] MEDS: ACCU-CHEK COMFORT CURVE STRIP VI SCH ×3 (21:00→23:00)
[2020-05-20] MEDS ORDERED: ONDANSETRON HCL 4 MG/2 ML VIAL IV PRN (21:00)
[2020-05-20] MEDS ORDERED: MORPHINE SULF INJ 2 MG/ML SYRINGE 1ML IV PRN (21:00)
[2020-05-20] MEDS ORDERED: ALBUTEROL SULF HFA 90MCG INH 200DOSE IN SCH (22:00)
[2020-05-20 22:02] VITALS: BP 100/66
--- NOTE | 2020-05-20 22:02 | NUR ---
RT NOTE ROUTINE VENT CHECK DONE. PT IS INTUBATED AND ON VENT V16 ON STATED SETTINGS IN THE ER. VENT IS PLUGGED TO RED OUTLET. ALARMS ARE ON AND AUDIBLE TO NURSING. AMBU BAG AT BEDSIDE AND CONNECTED TO O2 SOURCE. 8.0 ETT IS SECURED WITH ANCHORFAST AT 23 CM TO THE ORAL CENTER. FAMILY MEMBER AT BEDSIDE WITH RN. LLANOS ORDERED POX 89% Addendum: 05/20/20 at 2216 by Jen Gloria RT Amended: Links added.
[2020-05-20] MEDS: DOXYCYCLINE 100 MG TAB/CAP PO SCH (23:24)
[2020-05-20] MEDS: DexAMETHasone SOD PHOS 10MG/1ML VIAL INJ IV SCH (23:24)
[2020-05-21] VITALS (11 sets, daily range): BP systolic 88–111; BP diastolic 55–72
[2020-05-21] MEDS: ACCU-CHEK COMFORT CURVE STRIP VI SCH ×23 (00:23→23:11)
[2020-05-21] MEDS ORDERED: PROPOFOL 100 ML IV ONE (01:32)
[2020-05-21] MEDS: PROPOFOL 100 ML IV SCH (01:59)
[2020-05-21 06:05] LABS: Hematocrit 30.9 % (36.0-46.0); White Blood Cell 20.9 10^3/uL (4.4-10.8)
[2020-05-21 06:08] LABS: Mean Corpuscular Hemoglobin 20.1 pg (28.0-32.0); Mean Corpuscular Volume 69.3 fL (80.0-100.0); Platelet Count (auto) 180 10^3/uL (140-450); Red Blood Cells 4.46 10^6/uL (4.0-5.20)
[2020-05-21 06:12] LABS: Red Cell Distribution Width 22.9 % (11.8-14.3)
[2020-05-21 06:14] LABS: Basophils % (manual) 0 (0.0-2.0); Blast Cells 0; Eosinophils % (manual) 0 (0-7); Promyelocytes % 0; Reactive Lymphocytes 0
[2020-05-21 06:32] LABS: Albumin 2.3 g/dL (3.4-5.0); BUN/Creatinine Ratio 19.3; Calcium 8.1 mg/dL (8.5-10.1); Magnesium 2.1 mg/dL (1.6-2.6); Potassium 3.7 mmol/L (3.5-5.1)
[2020-05-21 06:40] LABS: Bilirubin, Total 0.8 mg/dL (0.2-1.0); Total Protein 6.4 g/dL (6.4-8.2)
[2020-05-21 09:14] LABS: Band Neutrophils % (manual) 4; Lymphocytes % (manual) 4 (10.0-50.0); Metamyelocytes % 0; Monocytes % (manual) 2 (0-12); Myelocytes % 1
[2020-05-21] MEDS: ENOXAPARIN SOD 100 MG/1 ML SYRINGE SC SCH (09:31)
[2020-05-21] MEDS: DOXYCYCLINE 100 MG TAB/CAP PO SCH ×2 (09:31→22:00)
[2020-05-21] MEDS: DexAMETHasone SOD PHOS 10MG/1ML VIAL INJ IV SCH (09:35)
[2020-05-21] MEDS ORDERED: ASCORBIC ACID 1,000 MG TAB PO SCH (10:00)
[2020-05-21] MEDS ORDERED: ZINC SULFATE 220mg CAP or TAB PO SCH (10:00)
[2020-05-21] MEDS ORDERED: ENOXAPARIN SOD 30 MG/0.3 ML SYRINGE SC SCH (10:00)
[2020-05-21] MEDS ORDERED: PANTOPRAZOLE 40 MG/10 ML VIAL INJ IV ONE (11:00)
[2020-05-21] MEDS: PIPERACILLIN-TAZOB 3.375GM 100 ML IV SCH ×2 (12:15→18:36)
--- NOTE | 2020-05-21 12:30 | NUR ---
WOUND CARE NOTE: IN TO SEE PATIENT AT THIS TIME FOR SKIN INTEGRITY MONITORING. PATIENT NOTED TO BE INTUBATED, SEDATED IN THE ER. SHE IS RESTING ON GURNEY. ORDERED VCP AIR BED AT THIS TIME. PATIENT TO BE PLACED, PENDING DELIVERY BY ADY CHRISTIE. PATIENT ADMITTED TO [facility] WITH DIAGNOSIS OF ACUTE RESPIRATORY FAILURE. CURRENT MADDY SCORE ASSESSED AT 10. SHE REMAINS INTUBATED, SEDATED. BEDSIDE NURSE STATES THAT PATIENT IS WOUND FREE UPON ASSESSMENT. SKIN/WOUND CARE PLAN IMPLEMENTED. RECOMMEND: FREQUENT TURN SCHEDULE Q 2 HOURS, PRN CONDITION PERMITS, WITH PRESSURE REDISTRIBUTION USING PILLOWS/WEDGES, SPECIALTY AIR BED PREVENTATIVE, BID/PRN APPLICATION WITH MOISTURE BARRIER CREAM, OPTIFOAM GENTLE SACRAL DRESSING PREVENTATIVE, DIETARY CONSULT FOR INTUBATION STATUS, SKIN/WOUND CARE PLAN, CONTINUED MONITORING BY WOUND CARE TEAM.
[2020-05-21] MEDS: D5W/SOD CHLO 0.9% 1,000 ML IV SCH (15:56)
[2020-05-21] MEDS: MIDAZOLAM DRIP 50 mg/50mL 50 ML IV SCH ×2 (17:13→21:20)
[2020-05-21] MEDS: NOREPINEPHRINE 8 MG/250ML KIT 250 ML IV SCH (18:34)
[2020-05-21] MEDS ORDERED: VASOPRESSIN 20 UNIT/ML ONE (20:42)
[2020-05-22] VITALS (13 sets, daily range): BP systolic 95–125; BP diastolic 55–78
[2020-05-22] MEDS: ACCU-CHEK COMFORT CURVE STRIP VI SCH ×14 (01:00→22:03)
[2020-05-22] MEDS: MIDAZOLAM DRIP 50 mg/50mL 50 ML IV SCH ×2 (01:15→04:55)
[2020-05-22] MEDS: PROPOFOL 100 ML IV SCH (01:15)
[2020-05-22] MEDS: NOREPINEPHRINE 8 MG/250ML KIT 250 ML IV SCH (02:00)
[2020-05-22] MEDS: D5W/SOD CHLO 0.9% 1,000 ML IV SCH ×2 (05:16→19:56)
[2020-05-22] MEDS: PIPERACILLIN-TAZOB 3.375GM 100 ML IV SCH ×4 (06:24→18:21)
[2020-05-22 09:13] LABS: INR 1.41 (0.9-1.15)
[2020-05-22 09:29] LABS: Basophils # (auto) 0.1 10 ^3/uL (0-0.2); Basophils % (auto) 0.4 % (0.0-2.0); Eosinophils # (auto) 0 10 ^3/uL (0-0.8); Hemoglobin 9.3 g/dL (12.2-16.2); Monocytes # (auto) 1.3 10 ^3/uL (0-1.3)
[2020-05-22 09:31] LABS: Hematocrit 33.1 % (36.0-46.0); Lymphocytes # (auto) 0.7 10 ^3/uL (0.4-5.4); Lymphocytes % (auto) 3.2 % (10.0-50.0); Mean Corpuscular Hemoglobin 19.9 pg (28.0-32.0); Mean Corpuscular Volume 71.2 fL (80.0-100.0); Monocytes % (auto) 6.1 % (0.0-12.0); Neutrophils # (auto) 19.6 10 ^3/uL (1.6-8.6); Neutrophils % (auto) 90.3 % (37.0-80.0); Nucleated Red Blood Cells % 0.3 %; Platelet Count (auto) 198 10^3/uL (140-450); Red Blood Cells 4.65 10^6/uL (4.0-5.20); White Blood Cell 21.7 10^3/uL (4.4-10.8)
[2020-05-22 09:36] LABS: Red Cell Distribution Width 23.7 % (11.8-14.3)
[2020-05-22 09:42] LABS: Albumin 2.1 g/dL (3.4-5.0); BUN/Creatinine Ratio 24.2; Bilirubin, Direct 0.6 mg/dL (0-0.2); Bilirubin, Total 0.8 mg/dL (0.2-1.0); Calcium 7.5 mg/dL (8.5-10.1); Phosphorus 4.3 mg/dL (2.5-4.90); Total Protein 6.1 g/dL (6.4-8.2)
[2020-05-22 09:44] LABS: Hepatitis B Surface Antibody Negative
[2020-05-22] MEDS ORDERED: VANCOMYCIN PER PHARMACY 0 MG IV SCH (09:45)
[2020-05-22] MEDS: DexAMETHasone SOD PHOS 10MG/1ML VIAL INJ IV SCH (10:00)
[2020-05-22] MEDS ORDERED: PANTOPRAZOLE 40 MG/10 ML VIAL INJ IV SCH (10:00)
[2020-05-22] MEDS: ENOXAPARIN SOD 100 MG/1 ML SYRINGE SC SCH (10:09)
[2020-05-22 10:24] LABS: Hepatitis A Total Antibody Negative
[2020-05-22] MEDS ORDERED: VANCOMYCIN 1GM/250ML 250 ML IV SCH (11:00)
--- NOTE | 2020-05-22 12:23 | NUR ---
I faxed transfer order/clinical packet to [facility].
[2020-05-22 12:33] LABS: Hepatitis A Ab IgM Negative; Hepatitis B Core IgM Negative
[2020-05-22 12:34] LABS: Hepatitis B Core Total AB Negative; Hepatitis B Surface Antigen Negative (Negative); Hepatitis C Antibody Negative (Negative)
[2020-05-22 13:02] LABS: Urine Bacteria NONE SEEN /hpf (None Seen); Urine Blood 2+ /uL (Negative); Urine Specific Gravity 1.015 (1.001-1.035); Urine WBC 9 /hpf (0 - 5)
--- NOTE | 2020-05-22 13:29 | NUR ---
I called [facility] and spoke with Estrella-she said they are having trouble receiving faxes-they have not received clinical information yet. I re-faxed on different machine. I spoke with Dr. Killian Balderas regarding the plan of care/transfer of this patient-he said he has already spoken with Dr. Verde this morning. Per Dr. Balderas patient can go by ground transport.
[2020-05-22] MEDS: LINEZOLID 600MG/300ML 300 ML IV SCH ×2 (14:13→22:12)
--- NOTE | 2020-05-22 14:20 | NUR ---
I received a message from Estrella at [facility] providing me with an alternate fax number of [phone]. I faxed transfer order and clinical documents to provided fax number.
--- NOTE | 2020-05-22 15:42 | NUR ---
Consult Per MD approval and when medically stable Consider TPN if Pt GI is not accessible Consider Osmolite 1.2 at 40 ml/hr Consider Nepro CS 1.8 at 40 ml if pt begins HD Est energy needs 8432-9333 kcal (20-25kcal/kg BW 77.111kg) Est protein needs 46-58g (0.6-0.75g/kg BW 77.111kg r/t CKD, elevated RFTs no HD) Will reassess prn. Addendum: 05/22/20 at [address] Amended: Links added.
--- NOTE | 2020-05-22 16:25 | NUR ---
Transfer Back Agreement completed-faxed back to [facility]. I spoke with Dr. Killian Balderas-he is aware that [facility] may want to send patient back here once they are done treating her.
--- NOTE | 2020-05-22 17:03 | NUR ---
I spoke with [facility]-they received the transfer back agreement and are working on a bed assignment. I requested that they call extension [phone] when a bed becomes available. I called [facility] and spoke with Lance-placed them on will call (critical care transport) pending bed at [facility]. Medicare PCS form sent to [facility]-received and is complete according to Lance. I spoke with nurse Munroe in ER and updated her on the status of the transfer.
[2020-05-22 20:33] LABS: Protein, Urine 61.1 mg/dL (0.0-11.9)
[2020-05-22] MEDS ORDERED: LINEZOLID 600MG/300ML 300 ML IV SCH (22:00)
[2020-05-22] MEDS ORDERED: ENOXAPARIN SOD 80 MG/0.8ML SYRINGE SC SCH (22:00)
== END 2020-05-22 23:57 | disposition short-term general hospital (02) | DRG 871 ==
LOC: EDBD 17:00 → ER 17:00 → TELE 17:01
PROVIDERS: ADMIT Hospitalist; ATTEND Family Medicine
PROC: 5A1945Z Respiratory Ventilation, 24-96 Consecutive Hours (ICD-10-PCS; principal; 2020-05-20)
PROC: 0BH17EZ Insertion of Endotracheal Airway into Trachea, Via Natural or Artificial Opening (ICD-10-PCS; 2020-05-20)
PROC: 5A09357 Assistance with Respiratory Ventilation, Less than 24 Consecutive Hours, Continuous Positive Airway Pressure (ICD-10-PCS; 2020-05-20)
DX: A41.9 Sepsis, unspecified organism (principal); J96.21 Acute and chronic respiratory failure with hypoxia; N17.0 Acute kidney failure with tubular necrosis; J18.9 Pneumonia, unspecified organism; R65.21 Severe sepsis with septic shock; N39.0 Urinary tract infection, site not specified; E44.0 Moderate protein-calorie malnutrition; J98.11 Atelectasis; Q61.3 Polycystic kidney, unspecified; R18.8 Other ascites; Q44.6 Cystic disease of liver; I50.32 Chronic diastolic (congestive) heart failure; D64.9 Anemia, unspecified; E16.2 Hypoglycemia, unspecified; F41.9 Anxiety disorder, unspecified; G43.909 Migraine, unspecified, not intractable, without status migrainosus; K29.70 Gastritis, unspecified, without bleeding; F32.9 Major depressive disorder, single episode, unspecified; K21.9 Gastro-esophageal reflux disease without esophagitis; K74.60 Unspecified cirrhosis of liver; I07.1 Rheumatic tricuspid insufficiency; I27.21 Secondary pulmonary arterial hypertension; N18.3 Chronic kidney disease, stage 3 (moderate); Z68.25 Body mass index [BMI] 25.0-25.9, adult; Z88.1 Allergy status to other antibiotic agents; Z20.828 Contact with and (suspected) exposure to other viral communicable diseases
CPT/HCPCS: 31500; 36415; 36600; 51702; 71045; 76705; 80053; 80074; 80076; 81001; 82140; 82570; 82805; 82962; 83036; 83605; 83735; 83880; 84100; 84156; 84300; 84484; 85007; 85025; 85027; 85379; 85610; 85730; 86704; 86706; 86708; 86803; 87040; 87070; 87077; 87086; 87186; 87205; 87340; 93005; 93970; 94002; 94003; 96365; 96375; 99291; C9113; G0378; J0696; J1100; J2250; J2543; J2704; J7042